=== PATIENT | female | born 1955 | race American Indian/Alaskan Native ===

== ENCOUNTER 2020-08-03 19:57 | Inpatient (IN) ==
[2020-08-03] MEDS ORDERED: Ondansetron ODT 4 mg TAB 4 MG TAB PO ONE (20:52)
[2020-08-03] MEDS ORDERED: fentaNYL 100 mcg/2 ml 50 MCG/ML VIAL IV SLOW PU ONE (21:00)
[2020-08-03] MEDS ORDERED: Bupivacaine 0.5% 50 ML MDV VIAL INJ ONE (22:30)
[2020-08-03] MEDS ORDERED: Lactated Ringers 1000 ml BAG 1,000 ML IV ONE (22:33)
[2020-08-03] MEDS ORDERED: Bupivacaine 0.5% PF 10 ML SDV VIAL INJ ONE (23:00)
[2020-08-04] MEDS ORDERED: Senna TAB 8.6 mg TAB PO PRN (00:40)
[2020-08-04] MEDS ORDERED: Magnesium Hydroxide LIQ 30 ML UDC PO PRN (00:40)
[2020-08-04] MEDS ORDERED: Polyethylene Glycol 3350 17 GM PACKET PO PRN (00:40)
[2020-08-04] MEDS: oxyCODONE/Acetamin 5/325 mg TAB PO PRN ×4 (04:58→22:29)
[2020-08-04 05:55] LABS: ABS Lymphocytes 1.3 10^3/ul (1.0-4.8); ABS Monocytes 0.6 10^3/ul (0-0.8); ABS Neutrophils 3.7 10^3/ul (1.5-7.7); Eosinophil % 0.6 %; Hematocrit 37 % (35-47); Lymphocyte % 22.7 %; Mean Corpuscular HGB Conc 33 g/dL (31-36); Mean Corpuscular Hemoglobin 28 pg (27-31); Mean Corpuscular Volume 87 fL (80-97); Mean Platelet Volume 7.2 fL (7.4-10.4); Platelet Count 291 10^3/uL (150-450); Red Blood Count 4.22 10^6 /uL (3.70-4.87); Red Cell Distribution Width 15 % (10-15); White Blood Count 5.6 10^3/uL (3.5-10.8)
[2020-08-04 06:15] LABS: Albumin 3.4 g/dL (3.2-5.2); Albumin/Globulin Ratio 1.3 (1-3); Calcium 8.5 mg/dL (8.6-10.3); EGFR African American 96.8 (>60); Globulin 2.7 g/dL (2-4); Magnesium 1.7 mg/dL (1.9-2.7); Potassium 4.1 mmol/L (3.5-5.0); Total Bilirubin 0.5 mg/dL (0.2-1.0); Total Protein 6.1 g/dL (6.4-8.9)
[2020-08-04] MEDS ORDERED: Magnesium Sulfate IV 1GM/100ML 1 GM/100 ML BAG IV ONE (06:48)
[2020-08-04 07:23] LABS: TSH Ultra Thyroid Stim Horm 2.54 mcIU/mL (0.34-5.60)
[2020-08-04] MEDS ORDERED: NS 0.9% 1000 ml BAG 1,000 ML IV SCH (08:00)
[2020-08-04] MEDS ORDERED: Morphine 2 MG/ML SYRINGE IV ONE (08:55)
[2020-08-04] MEDS ORDERED: Enoxaparin 40 MG/0.4 ML SYR SUBCUT SCH (10:00)
[2020-08-05] MEDS: oxyCODONE/Acetamin 5/325 mg TAB PO PRN ×4 (05:18→20:12)
[2020-08-05] MEDS: Enoxaparin 100 MG/ML SYR SUBCUT SCH ×2 (09:02→20:12)
[2020-08-05 10:27] LABS: Calcium 9.1 mg/dL (8.6-10.3); EGFR African American 98.4 (>60); EGFR Non-African American 81.3 (>60); Magnesium 1.8 mg/dL (1.9-2.7); Potassium 3.9 mmol/L (3.5-5.0)
[2020-08-05] MEDS ORDERED: Magnesium Sulfate 2 gm BAG 2 GM/50 ML BAG IVPB ONE (10:52)
[2020-08-05] MEDS ORDERED: ceFAZolin 2 GM PREMIX 2 GM/50 ML BAG IVPB ONE (11:23)
[2020-08-05] MEDS: NS 0.9% 1000 ml BAG 1,000 ML IV SCH ×2 (11:44→16:15)
[2020-08-05] MEDS ORDERED: Lidocaine 1% VIAL 10 MG/ML VIAL ONE (13:03)
[2020-08-05] MEDS ORDERED: fentaNYL 100 mcg/2 ml 50 MCG/ML VIAL ONE (13:14)
[2020-08-05] MEDS ORDERED: Midazolam 5 mg/5 ml VIAL 1 mg/ml 5 ml VIAL (5 mg) ONE ×2 (13:14→13:51)
[2020-08-05] MEDS ORDERED: Iohexol 300 (CONTRAST) 10 ML SDV ONE (13:14)
[2020-08-05] MEDS ORDERED: DiMENhydriNATE IV 50 mg/ml 1 ml VIAL IV PUSH ONE (13:19)
[2020-08-05] MEDS ORDERED: Buffered Lidocaine 1% SYRIN 1 ml INTRADERM ONE (13:19)
[2020-08-05] MEDS ORDERED: Flumazenil 0.5 mg/5 ml 0.1 MG/ML 5 ml VIAL ONE (13:39)
[2020-08-05] MEDS ORDERED: Naloxone 0.4 mg VIAL 0.4 mg/ml 1 ml VIAL ONE (13:39)
[2020-08-05] MEDS ORDERED: Lactated Ringers 1000 ml BAG 1,000 ML IV SCH (14:00)
[2020-08-05] MEDS: ceFAZolin 1 GM ADVAN 1 GM in NS 0.9% 50 ML 50 ML IVPB SCH (20:07)
[2020-08-06] MEDS: oxyCODONE/Acetamin 5/325 mg TAB PO PRN ×2 (01:03→22:07)
[2020-08-06] MEDS: NS 0.9% 1000 ml BAG 1,000 ML IV SCH ×2 (01:37→09:55)
[2020-08-06] MEDS: ceFAZolin 1 GM ADVAN 1 GM in NS 0.9% 50 ML 50 ML IVPB SCH ×2 (05:12→12:04)
[2020-08-06 07:18] LABS: INR 1.02 (0.82-1.09)
[2020-08-06 07:31] LABS: ABS Eosinophils 0.2 10^3/ul (0-0.6); ABS Lymphocytes 1.2 10^3/ul (1.0-4.8); ABS Monocytes 0.6 10^3/ul (0-0.8); ABS Neutrophils 3.6 10^3/ul (1.5-7.7); Eosinophil % 3.1 %; Hematocrit 35 % (35-47); Hemoglobin 11.6 g/dL (12.0-16.0); Lymphocyte % 21.2 %; Mean Corpuscular HGB Conc 33 g/dL (31-36); Mean Corpuscular Hemoglobin 29 pg (27-31); Mean Corpuscular Volume 86 fL (80-97); Mean Platelet Volume 7.6 fL (7.4-10.4); Platelet Count 270 10^3/uL (150-450); Red Blood Count 4.06 10^6 /uL (3.70-4.87); Red Cell Distribution Width 15 % (10-15); White Blood Count 5.7 10^3/uL (3.5-10.8)
[2020-08-06 07:33] LABS: Calcium 8.1 mg/dL (8.6-10.3); EGFR African American 105.1 (>60); EGFR Non-African American 86.8 (>60); Potassium 3.9 mmol/L (3.5-5.0)
[2020-08-06] MEDS ORDERED: Morphine 2 MG/ML SYRINGE IV ONE (09:16)
[2020-08-06] MEDS ORDERED: fentaNYL 100 mcg/2 ml 50 MCG/ML VIAL IV PRN (10:30)
[2020-08-06] MEDS ORDERED: Ondansetron 4 mg VIAL 2 MG/ML 2 ml VIAL IV PRN (10:30)
[2020-08-06] MEDS ORDERED: Metoclopramide 5 MG/ML VIAL (10 mg) IV PRN (10:30)
[2020-08-06] MEDS ORDERED: HYDROcodone/ACETAMIN 5/325 mg TAB PO PRN (10:30)
[2020-08-06] MEDS ORDERED: Naloxone 0.4 mg VIAL 0.4 mg/ml 1 ml VIAL IV PRN (10:30)
[2020-08-06] MEDS ORDERED: Lidocaine 2% PF 5 ML VIAL ONE (12:37)
[2020-08-06] MEDS ORDERED: Ondansetron 4 mg VIAL 2 MG/ML 2 ml VIAL ONE (12:37)
[2020-08-06] MEDS ORDERED: Propofol 10 MG/ML 20 ML BTL ONE (12:37)
[2020-08-06] MEDS ORDERED: Dexamethasone IV 4 MG/ML VIAL 1 ml VIAL ONE (12:37)
[2020-08-06] MEDS ORDERED: fentaNYL 250 mcg/5 ml 50 MCG/ML 5 ml VIAL (250 MCG) ONE (12:38)
[2020-08-06] MEDS ORDERED: Midazolam 2 mg/2 ml VIAL 1 mg/ml 2 ml VIAL (2 mg) ONE (12:41)
[2020-08-06] MEDS ORDERED: Bupivacaine 0.5% SDV PF 30ML VIAL ONE (13:35)
[2020-08-06] MEDS ORDERED: Lidocaine 2% PF 10 ML AMP ONE (13:36)
[2020-08-06] MEDS ORDERED: Phenylephrine IV 10 MG/ML 1 ml VIAL ONE (14:16)
[2020-08-07 05:35] LABS: Hematocrit 37 % (35-47); Hemoglobin 12.2 g/dL (12.0-16.0); Mean Platelet Volume 7.5 fL (7.4-10.4); Platelet Count 294 10^3/uL (150-450)
[2020-08-07] MEDS: ceFAZolin 1 GM X 3 DOSES POST-OP Q8H (AddVan) IVPB SCH ×3 (05:45→21:43)
[2020-08-07 05:47] LABS: Calcium 8.8 mg/dL (8.6-10.3); Potassium 4.4 mmol/L (3.5-5.0)
[2020-08-07 05:53] LABS: EGFR African American 105.1 (>60); EGFR Non-African American 86.8 (>60)
[2020-08-07] MEDS: oxyCODONE/Acetamin 5/325 mg TAB PO PRN ×3 (08:16→21:41)
[2020-08-08] MEDS: oxyCODONE/Acetamin 5/325 mg TAB PO PRN ×3 (03:55→13:00)
[2020-08-08 07:41] LABS: ABS Eosinophils 0.2 10^3/ul (0-0.6); ABS Lymphocytes 1.4 10^3/ul (1.0-4.8); ABS Monocytes 0.7 10^3/ul (0-0.8); ABS Neutrophils 3.1 10^3/ul (1.5-7.7); Eosinophil % 3.6 %; Hematocrit 33 % (35-47); Hemoglobin 10.7 g/dL (12.0-16.0); Lymphocyte % 25.7 %; Mean Corpuscular HGB Conc 33 g/dL (31-36); Mean Corpuscular Hemoglobin 28 pg (27-31); Mean Corpuscular Volume 86 fL (80-97); Mean Platelet Volume 7.5 fL (7.4-10.4); Platelet Count 274 10^3/uL (150-450); Red Blood Count 3.78 10^6 /uL (3.70-4.87); Red Cell Distribution Width 15 % (10-15); White Blood Count 5.4 10^3/uL (3.5-10.8)
[2020-08-08 08:28] LABS: Calcium 8.6 mg/dL (8.6-10.3); EGFR African American 88.4 (>60); Magnesium 1.8 mg/dL (1.9-2.7); Potassium 4.2 mmol/L (3.5-5.0)
[2020-08-08 08:29] VITALS: BP 130/84
[2020-08-08] MEDS ORDERED: Magnesium Sulfate IV 1GM/100ML 1 GM/100 ML BAG IV ONE (09:09)
== END 2020-08-08 14:16 | disposition home health service (06) ==
LOC: ED 19:57 → SSU 19:57 → MEDTELE 08-05 15:45
PROVIDERS: ADMIT Internal Medicine; ATTEND Internal Medicine